=== PATIENT | male | born 1955 | race Caucasian/White ===

== ENCOUNTER → 2016-09-17 | Outpatient (CLI) | payer MEDICARE, OTHER ==
[~2016-09-17] MED LIST: AMITRIPTYLINE H25 M1 PO; ASPIRIN E.C. 8181 MG PO; AZELEX 20% CREA30 GM; BACTRIM DS 8001 TAB PO; COLACE 100100 MG/CAP PO; COREG 3.123.125 MG/T PO; COREG 6.256.25 MG/TA PO; DEMADEX 20MG20 M1 PO; DOXYCYCLINE 10100 MG PO; FLOMAX 0.40.4 MG/CAP PO; K-TAB20 PO; KLOR-CON M2020 MEQ PO; LASIX 20MG TABL20 MG PO; LEVAQUIN 5500 MG/TA1 PO; LIPITOR 40MG TA40 MG PO; LYRICA 25MG CAP25 MG PO; MIRALAX PA17 GM/Dose PO; MS CONTIN 660 MG/TAB PO; PHOSPHA 250 NEU1 TAB PO; PRILOSEC 20MG20 MG PO; PRINIVIL10 MG PO; PROAIR HFA0.09 MG/AC IH; PROTONIX 40MG T40 MG PO; SOOLANTRA TOP; SULFACETAMIDE 115 M1; TYLENOL W/COD1 UDTAB PO; ULTRAM 50MG TAB50 MG PO; VALIUM 5MG T5 MG/TAB PO; VIAGRA100 M1 PO; ZESTRIL2.5 MG PO; ZESTRIL40 MG PO; ZOCOR 80MG80 MG PO
[2016-09-17 11:24] LABS: BASO % 0.6 % (0.0-2.0); EOS # 0.2 (0.0-0.7); EOS % 3.3 % (0-4.0); GRAN # 3.2 (1.4-6.5); HEMOGLOBIN 13.2 g/dl (13.5-18.0); LYMPH # 1.1 (1.2-3.4); LYMPH % 21.3 % (20.0-51.0); MEAN CELL VOLUME 94 fl (80.0-100.0); MEAN CORPUSCULAR HEMOGLOBIN 31 pg (27.0-31.0); MEAN CORPUSCULAR HGB CONC 33 g/dl (33.0-37.0); MEAN PLATELET VOLUME 10.6 fl (7.4-10.4); MONO # 0.7 (0.1-0.6); MONO % 13.2 % (1.7-9.3); PLATELET COUNT 246 K/mm3 (130-400); RED BLOOD COUNT 4.27 M/mm3 (4.20-5.60); REDCELL DISTRIBUTION WIDTH-CV 12.4 % (11.5-14.5); WHITE BLOOD COUNT 5.2 K/mm3 (4.8-10.8)
[2016-09-17 11:31] LABS: CALCIUM 9.5 mg/dL (8.4-10.2); CREATININE, serum 1.19 mg/dL (0.66-1.25); POTASSIUM 4.8 mmol/L (3.4-5.0)
[2016-09-17 23:09] LABS: CREATININE OTHER SOURCE 121 mg/dL (())
== END ==
LOC: COL.LAB 09-16 10:39
PROVIDERS: Internal Medicine
DX: N18.2 Chronic kidney disease, stage 2 (mild) (principal); E87.1 Hypo-osmolality and hyponatremia

== ENCOUNTER 2017-02-01 10:23 | Inpatient (IN) | payer MEDICARE, OTHER ==
[2017-02-01] VITALS (438 sets, daily range): BP systolic 89–190; BP diastolic 55–95; PULSE 54–94; TEMP 98.4–100; O2SAT 94–100
[~2017-02-01] VITALS: Ht 160 cm; Wt 77.0 kg
[~2017-02-01 10:23] MED LIST changes: -ASPIRIN E.C. 8181 MG PO; -BACTRIM DS 8001 TAB PO; -K-TAB20 PO; -LASIX 20MG TABL20 MG PO; -PHOSPHA 250 NEU1 TAB PO; -SOOLANTRA TOP; -ZESTRIL2.5 MG PO
[2017-02-01] MEDS ORDERED: COREG 6.256.25 MG/TA PO (10:43)
[2017-02-01] MEDS ORDERED: VALIUM 5MG T5 MG/TAB PO (10:44)
[2017-02-01] MEDS ORDERED: ASPIRIN E.C. 8181 MG PO (10:46)
[2017-02-01] MEDS ORDERED: LASIX 20MG TABL20 MG PO (10:46)
[2017-02-01] MEDS ORDERED: TYLENOL W/COD1 UDTAB PO (10:47)
[2017-02-01 10:48] LABS: HEMOGLOBIN 13.7 g/dl (13.5-18.0); MEAN CELL VOLUME 96 fl (80.0-100.0); MEAN CORPUSCULAR HEMOGLOBIN 31 pg (27.0-31.0); MEAN CORPUSCULAR HGB CONC 33 g/dl (33.0-37.0); MEAN PLATELET VOLUME 10.9 fl (7.4-10.4); PLATELET COUNT 251 K/mm3 (130-400); RED BLOOD COUNT 4.38 M/mm3 (4.20-5.60); REDCELL DISTRIBUTION WIDTH-CV 13.1 % (11.5-14.5); WHITE BLOOD COUNT 15.7 K/mm3 (4.8-10.8)
[2017-02-01] MEDS ORDERED: PRINIVIL10 MG PO (10:48)
[2017-02-01] MEDS ORDERED: SOOLANTRA TOP (10:48)
[2017-02-01 10:52] LABS: ADD PATHOLOGY DIFF REVIEW NO
[2017-02-01 11:02] LABS: ADJUSTED CALCIUM 8.7 mg/dL (8.4-10.2); BILIRUBIN,TOTAL 1.2 mg/dL (0.0-1.0); CALCIUM 8.7 mg/dL (8.4-10.2); CREATININE, serum 3.21 mg/dL (0.66-1.25); POTASSIUM 3.9 mmol/L (3.4-5.0)
[2017-02-01 11:05] LABS: ARTERIAL BLD GAS TCO2 CT 23.2; ARTERIAL BLOOD GAS BASE EXCESS -5.2 (-2-2); ARTERIAL BLOOD GAS HCO3 21.7 meq/L (22-26); ARTERIAL BLOOD GAS PHT 7.25 C (7.35-7.45); ARTERIAL BLOOD GAS PO2T 70.7 (80-100); ARTERIAL BLOOD GAS pH 7.27 (7.35-7.45); OXYHEMOGLOBIN 88.8 %
[2017-02-01 11:06] LABS: ALLEN TEST NO; ATS? YES
[2017-02-01 11:58] LABS: BAND 50 % (0-10); BASOPHIL 1 % (0-2); NEUTROPHILS 28 % (42.0-75.2); TOTAL CELLS COUNTED 100
[2017-02-01 12:00] LABS: PLATELET ESTIMATE NORMAL (NORMAL); TOXIC GRANULATION PRESENT
[2017-02-01 12:01] LABS: METAMYELOCYTE 3 % (0-0)
[2017-02-01 13:04] LABS: PH 5 (5-8); SQUAMOUS EPITHELIAL None Seen /hpf; URINE APPEARANCE Clear; URINE BACTERIA None Seen /hpf; URINE BILIRUBIN Negative (NEGATIVE); URINE BLOOD Negative (NEGATIVE); URINE COLOR Yellow; URINE GLUCOSE Negative (NEGATIVE); URINE KETONE Negative (NEGATIVE); URINE RBC 0-2 /hpf; URINE UROBILINOGEN Negative (NEGATIVE); URINE WBC 0-2 /hpf
[2017-02-01 14:04] LABS: ARTERIAL BLD GAS O2 SATURATION 90.9 % (92-100); ARTERIAL BLD GAS TCO2 CT 22.2; ARTERIAL BLOOD GAS BASE EXCESS -6.5 (-2-2); ARTERIAL BLOOD GAS HCO3 20.7 meq/L (22-26); ARTERIAL BLOOD GAS PO2 65.9 mmHg (80-100); ARTERIAL BLOOD GAS pH 7.25 (7.35-7.45); OXYHEMOGLOBIN 90.2 %
[2017-02-01 14:05] LABS: ABG VENTILATOR TIDAL VOLUME 503 mL; ALLEN TEST YES; ALLENS TEST RESULT PASS; ATS? YES
[2017-02-01 14:18] LABS: VENOUS BLOOD GAS BE -5.8 (-4-4); VENOUS BLOOD GAS SAO2 64.8 % (60-80)
[2017-02-01 14:19] LABS: VENOUS BLOOD GAS SITE CENTRAL LINE
[2017-02-01 16:07] LABS: ARTERIAL BLD GAS O2 SATURATION 98.2 % (92-100); ARTERIAL BLD GAS TCO2 CT 21.7; ARTERIAL BLOOD GAS BASE EXCESS -6.4 (-2-2); ARTERIAL BLOOD GAS HCO3 20.3 meq/L (22-26); ARTERIAL BLOOD GAS pH 7.27 (7.35-7.45); OXYHEMOGLOBIN 97.2 %
[2017-02-01 16:08] LABS: ABG VENTILATOR TIDAL VOLUME 450 mL; ATS? NO
[2017-02-01 19:46] LABS: ARTERIAL BLD GAS O2 SATURATION 79.3 % (92-100); ARTERIAL BLD GAS TCO2 CT 14.9; ARTERIAL BLOOD GAS BASE EXCESS -10.3 (-2-2); ARTERIAL BLOOD GAS HCO3 14.1 meq/L (22-26); ARTERIAL BLOOD GAS PO2 39.8 mmHg (80-100); ARTERIAL BLOOD GAS pH 7.35 (7.35-7.45); OXYHEMOGLOBIN 78.4 %
[2017-02-01 19:47] LABS: ATS? NO
[2017-02-01 20:02] LABS: ARTERIAL BLD GAS O2 SATURATION 95.9 % (92-100); ARTERIAL BLD GAS TCO2 CT 18.5; ARTERIAL BLOOD GAS BASE EXCESS -6.2 (-2-2); ARTERIAL BLOOD GAS HCO3 17.6 meq/L (22-26); ARTERIAL BLOOD GAS PO2 81.6 mmHg (80-100); ARTERIAL BLOOD GAS pH 7.39 (7.35-7.45); OXYHEMOGLOBIN 95.1 %
[2017-02-01 20:03] LABS: ATS? NO
[2017-02-02] VITALS (1184 sets, daily range): BP systolic 95–142; BP diastolic 52–85; PULSE 48–60; TEMP 96.7–98.4; O2SAT 67–100
[2017-02-02 00:24] LABS: VENOUS BLOOD GAS BE -7.9 (-4-4); VENOUS BLOOD GAS SAO2 72.9 % (60-80)
[2017-02-02 00:25] LABS: VENOUS BLOOD GAS SITE CENTRAL LINE
[2017-02-02 04:00] LABS: VENOUS BLOOD GAS BE -4.1 (-4-4); VENOUS BLOOD GAS SAO2 73.3 % (60-80); VENOUS BLOOD GAS SITE CENTRAL LINE
[2017-02-02 05:18] LABS: HEMATOCRIT 30.1 % (42.0-52.0); HEMOGLOBIN 10.2 g/dl (13.5-18.0); MEAN CELL VOLUME 94 fl (80.0-100.0); MEAN CORPUSCULAR HEMOGLOBIN 32 pg (27.0-31.0); MEAN CORPUSCULAR HGB CONC 34 g/dl (33.0-37.0); MEAN PLATELET VOLUME 12.1 fl (7.4-10.4); PLATELET COUNT 158 K/mm3 (130-400); RED BLOOD COUNT 3.22 M/mm3 (4.20-5.60); REDCELL DISTRIBUTION WIDTH-CV 13.2 % (11.5-14.5); WHITE BLOOD COUNT 14.8 K/mm3 (4.8-10.8)
[2017-02-02 05:18] LABS: ARTERIAL BLD GAS O2 SATURATION 96.8 % (92-100); ARTERIAL BLD GAS TCO2 CT 18.8; ARTERIAL BLOOD GAS BASE EXCESS -5.8 (-2-2); ARTERIAL BLOOD GAS HCO3 17.9 meq/L (22-26); ARTERIAL BLOOD GAS PO2 96.1 mmHg (80-100); ATS? NO
[2017-02-02 05:43] LABS: INR 1.3 (0.8-3.0); PROTHROMBIN TIME 14.9 SECONDS (9.7-12.8)
[2017-02-02 05:46] LABS: ADD PATHOLOGY DIFF REVIEW NO
[2017-02-02 05:52] LABS: BAND 69 % (0-10); METAMYELOCYTE 1 % (0-0); NEUTROPHILS 21 % (42.0-75.2); PLATELET ESTIMATE NORMAL (NORMAL); TOTAL CELLS COUNTED 100
[2017-02-02 05:56] LABS: ADJUSTED CALCIUM 8.3 mg/dL (8.4-10.2); ALBUMIN 2.6 gm/dL (3.5-5.0); BILIRUBIN,TOTAL 0.5 mg/dL (0.0-1.0); CALCIUM 7.2 mg/dL (8.4-10.2); CREATININE, serum 1.32 mg/dL (0.66-1.25); MAGNESIUM 1.8 mg/dL (1.6-2.3); PHOSPHOROUS 1.9 mg/dL (2.5-4.5); POTASSIUM 3.7 mmol/L (3.4-5.0)
[2017-02-02 09:41] LABS: VENOUS BLOOD GAS SITE CENTRAL LINE
[2017-02-03] VITALS (1421 sets, daily range): BP systolic 103–132; BP diastolic 57–70; PULSE 56–76; TEMP 97.7–98.8; O2SAT 63–100
[2017-02-03 05:07] LABS: ARTERIAL BLD GAS O2 SATURATION 97.3 % (92-100); ARTERIAL BLD GAS TCO2 CT 18.9; ARTERIAL BLOOD GAS BASE EXCESS -6.2 (-2-2); ARTERIAL BLOOD GAS PO2 113.2 mmHg (80-100); ARTERIAL BLOOD GAS pH 7.38 (7.35-7.45); OXYHEMOGLOBIN 96.2 %
[2017-02-03 05:08] LABS: ATS? NO
[2017-02-03 05:35] LABS: BASO % 0.1 % (0.0-2.0); EOS # 0.1 (0.0-0.7); EOS % 0.5 % (0-4.0); GRAN # 13.1 (1.4-6.5); GRAN % 88.9 % (42.2-75.2); LYMPH # 0.6 (1.2-3.4); LYMPH % 4.3 % (20.0-51.0); MEAN CELL VOLUME 92 fl (80.0-100.0); MEAN CORPUSCULAR HGB CONC 35 g/dl (33.0-37.0); MONO # 0.6 (0.1-0.6); PLATELET COUNT 159 K/mm3 (130-400); RED BLOOD COUNT 3.17 M/mm3 (4.20-5.60); REDCELL DISTRIBUTION WIDTH-CV 13.7 % (11.5-14.5); WHITE BLOOD COUNT 14.8 K/mm3 (4.8-10.8)
[2017-02-03 05:37] LABS: HEMATOCRIT 29.3 % (42.0-52.0); HEMOGLOBIN 10.1 g/dl (13.5-18.0); MEAN CORPUSCULAR HEMOGLOBIN 32 pg (27.0-31.0)
[2017-02-03 05:41] LABS: INR 1.1 (0.8-3.0); PROTHROMBIN TIME 12.2 SECONDS (9.7-12.8)
[2017-02-03 05:46] LABS: ADJUSTED CALCIUM 8.7 mg/dL (8.4-10.2); ALBUMIN 2.5 gm/dL (3.5-5.0); BILIRUBIN,TOTAL 0.5 mg/dL (0.0-1.0); CALCIUM 7.5 mg/dL (8.4-10.2); CREATININE, serum 0.93 mg/dL (0.66-1.25); PHOSPHOROUS 2.1 mg/dL (2.5-4.5); POTASSIUM 3.4 mmol/L (3.4-5.0); TOTAL PROTEIN 5.2 gm/dL (6.4-8.2)
[2017-02-03 14:20] LABS: ARTERIAL BLD GAS TCO2 CT 20.6; ARTERIAL BLOOD GAS BASE EXCESS -6.1 (-2-2); ARTERIAL BLOOD GAS HCO3 19.4 meq/L (22-26); ARTERIAL BLOOD GAS PHT 7.32 C (7.35-7.45); ARTERIAL BLOOD GAS PO2 90.9 mmHg (80-100); ARTERIAL BLOOD GAS PO2T 90.9 (80-100); ARTERIAL BLOOD GAS pH 7.32 (7.35-7.45)
[2017-02-03 14:21] LABS: ABG VENTILATOR TIDAL VOLUME 450 mL; ATS? YES
[2017-02-03 22:47] LABS: ARTERIAL BLD GAS TCO2 CT 21.8; ARTERIAL BLOOD GAS BASE EXCESS -3.6 (-2-2); ARTERIAL BLOOD GAS HCO3 20.7 meq/L (22-26); ARTERIAL BLOOD GAS PO2 97.1 mmHg (80-100); ARTERIAL BLOOD GAS pH 7.39 (7.35-7.45); OXYHEMOGLOBIN 96.1 %
[2017-02-03 22:48] LABS: ABG VENTILATOR TIDAL VOLUME 656 mL; ALLEN TEST YES; ALLENS TEST RESULT PASS; ATS? YES
[2017-02-04] VITALS (845 sets, daily range): BP systolic 123–159; BP diastolic 75–81; PULSE 84–92; TEMP 97.8–99; O2SAT 87–100
[2017-02-04 04:45] LABS: MEAN CELL VOLUME 91 fl (80.0-100.0); MEAN CORPUSCULAR HGB CONC 34 g/dl (33.0-37.0); MEAN PLATELET VOLUME 11.1 fl (7.4-10.4); PLATELET COUNT 178 K/mm3 (130-400); RED BLOOD COUNT 3.35 M/mm3 (4.20-5.60); REDCELL DISTRIBUTION WIDTH-CV 14.3 % (11.5-14.5); WHITE BLOOD COUNT 14.3 K/mm3 (4.8-10.8)
[2017-02-04 04:50] LABS: ADD PATHOLOGY DIFF REVIEW NO; HEMATOCRIT 30.6 % (42.0-52.0); HEMOGLOBIN 10.4 g/dl (13.5-18.0); MEAN CORPUSCULAR HEMOGLOBIN 31 pg (27.0-31.0)
[2017-02-04 04:55] LABS: ADJUSTED CALCIUM 8.8 mg/dL (8.4-10.2); ALBUMIN 2.6 gm/dL (3.5-5.0); BILIRUBIN,TOTAL 0.6 mg/dL (0.0-1.0); CALCIUM 7.7 mg/dL (8.4-10.2); CREATININE, serum 0.95 mg/dL (0.66-1.25); MAGNESIUM 1.8 mg/dL (1.6-2.3); PHOSPHOROUS 1.3 mg/dL (2.5-4.5); POTASSIUM 3.1 mmol/L (3.4-5.0); TOTAL PROTEIN 5.3 gm/dL (6.4-8.2)
[2017-02-04 05:15] LABS: ARTERIAL BLD GAS O2 SATURATION 91.5 % (92-100); ARTERIAL BLD GAS TCO2 CT 23.2; ARTERIAL BLOOD GAS BASE EXCESS -1.1 (-2-2); ARTERIAL BLOOD GAS HCO3 22.2 meq/L (22-26); ARTERIAL BLOOD GAS PO2 56.6 mmHg (80-100); ARTERIAL BLOOD GAS pH 7.45 (7.35-7.45); OXYHEMOGLOBIN 90.8 %
[2017-02-04 05:16] LABS: ALLEN TEST YES; ALLENS TEST RESULT PASS; ATS? YES
[2017-02-04 05:29] LABS: BAND 57 % (0-10); EOSINOPHIL 1 % (0-4); NEUTROPHILS 32 % (42.0-75.2); TOTAL CELLS COUNTED 100
[2017-02-04 16:12] LABS: INR 1.2 (0.8-3.0); PROTHROMBIN TIME 12.9 SECONDS (9.7-12.8)
[2017-02-04 16:29] LABS: CALCIUM 8.2 mg/dL (8.4-10.2); CREATININE, serum 1.07 mg/dL (0.66-1.25)
[2017-02-04 16:33] LABS: POTASSIUM 2.9 mmol/L (3.4-5.0)
[2017-02-05] VITALS (7 sets, daily range): BP systolic 135–161; BP diastolic 75–83; PULSE 74–109; TEMP 98.2–99.2
[2017-02-05 07:55] LABS: PHOSPHOROUS 2.4 mg/dL (2.5-4.5)
[2017-02-06 03:42] VITALS: BP 143/76; PULSE 80; TEMP 99.5
[2017-02-06 07:56] LABS: MEAN CELL VOLUME 91 fl (80.0-100.0); MEAN CORPUSCULAR HGB CONC 34 g/dl (33.0-37.0); MEAN PLATELET VOLUME 11.4 fl (7.4-10.4); PLATELET COUNT 171 K/mm3 (130-400); RED BLOOD COUNT 3.18 M/mm3 (4.20-5.60); REDCELL DISTRIBUTION WIDTH-CV 14.3 % (11.5-14.5); WHITE BLOOD COUNT 10.3 K/mm3 (4.8-10.8)
[2017-02-06 08:00] LABS: ADD PATHOLOGY DIFF REVIEW NO; HEMATOCRIT 28.8 % (42.0-52.0); HEMOGLOBIN 9.9 g/dl (13.5-18.0); MEAN CORPUSCULAR HEMOGLOBIN 31 pg (27.0-31.0)
[2017-02-06 08:29] LABS: PHOSPHOROUS 3.7 mg/dL (2.5-4.5); POTASSIUM 3.7 mmol/L (3.4-5.0)
[2017-02-06 08:33] VITALS: BP 135/84; PULSE 94; TEMP 98.2
[2017-02-06 08:35] LABS: VANCOMYCIN TROUGH 5.11 ug/mL (7.00-20.00)
[2017-02-06 11:01] VITALS: BP 118/74; PULSE 89; TEMP 97.8
[2017-02-06 13:33] LABS: BAND 17 % (0-10); EOSINOPHIL 2 % (0-4); METAMYELOCYTE 5 % (0-0); MYELOCYTE 2 % (0-0); NEUTROPHILS 38 % (42.0-75.2); TOTAL CELLS COUNTED 100
[2017-02-06 13:34] LABS: PLATELET ESTIMATE NORMAL (NORMAL)
[2017-02-06 13:35] LABS: HYPOCHROMIA 1+
[2017-02-06 15:58] VITALS: BP 108/70; PULSE 100; TEMP 98.2
[2017-02-06 20:35] VITALS: BP 147/83; PULSE 82; TEMP 98
[2017-02-06 23:38] VITALS: BP 140/77; PULSE 82; TEMP 97.9
[2017-02-07 03:56] VITALS: BP 138/71; PULSE 76; TEMP 98.2
[2017-02-07 07:07] VITALS: BP 141/74; PULSE 77; TEMP 97.9
[2017-02-07 07:55] LABS: MEAN CELL VOLUME 92 fl (80.0-100.0); MEAN CORPUSCULAR HGB CONC 34 g/dl (33.0-37.0); MEAN PLATELET VOLUME 11.3 fl (7.4-10.4); PLATELET COUNT 196 K/mm3 (130-400); RED BLOOD COUNT 3.34 M/mm3 (4.20-5.60); REDCELL DISTRIBUTION WIDTH-CV 14.5 % (11.5-14.5); WHITE BLOOD COUNT 9.3 K/mm3 (4.8-10.8)
[2017-02-07 08:01] LABS: HEMATOCRIT 30.6 % (42.0-52.0); HEMOGLOBIN 10.4 g/dl (13.5-18.0); MEAN CORPUSCULAR HEMOGLOBIN 31 pg (27.0-31.0)
[2017-02-07 08:11] LABS: POTASSIUM 3.4 mmol/L (3.4-5.0)
[2017-02-07 10:48] LABS: ADD PATHOLOGY DIFF REVIEW YES; BAND 27 % (0-10); EOSINOPHIL 8 % (0-4); METAMYELOCYTE 1 % (0-0); MYELOCYTE 2 % (0-0); NEUTROPHILS 19 % (42.0-75.2); PLATELET ESTIMATE NORMAL (NORMAL); TOTAL CELLS COUNTED 100
[2017-02-07 11:48] VITALS: BP 147/79; PULSE 80; TEMP 98.3
[2017-02-07] MEDS ORDERED: PROAIR HFA0.09 MG/AC IH (12:17)
[2017-02-07] MEDS ORDERED: ZESTRIL2.5 MG PO (12:17)
[2017-02-07] MEDS ORDERED: BACTRIM DS 8001 TAB PO (12:17)
[2017-02-07] MEDS ORDERED: PHOSPHA 250 NEU1 TAB PO (12:17)
[2017-02-07] MEDS ORDERED: K-TAB20 PO (12:23)
== END 2017-02-07 15:20 | disposition home or self-care (01) | DRG 853 ==
LOC: COL.ER 10:23 → MEDICAL 11:15 → ICU 11:15 → MEDICAL 02-04 18:05
PROVIDERS: Emergency Medicine; Family Medicine; Internal Medicine Pulmonary Disease
PROC: 5A1945Z Respiratory Ventilation, 24-96 Consecutive Hours (ICD-10-PCS; 2017-02-01)
PROC: 0BH17EZ Insertion of Endotracheal Airway into Trachea, Via Natural or Artificial Opening (ICD-10-PCS; 2017-02-01)
PROC: 02HV33Z Insertion of Infusion Device into Superior Vena Cava, Percutaneous Approach (ICD-10-PCS; 2017-02-01)
PROC: 0B968ZZ Drainage of Right Lower Lobe Bronchus, Via Natural or Artificial Opening Endoscopic (ICD-10-PCS; principal; 2017-02-02)
PROC: 0B9B8ZZ Drainage of Left Lower Lobe Bronchus, Via Natural or Artificial Opening Endoscopic (ICD-10-PCS; 2017-02-02)
PROC: 0B948ZZ Drainage of Right Upper Lobe Bronchus, Via Natural or Artificial Opening Endoscopic (ICD-10-PCS; 2017-02-02)
DX: A41.9 Sepsis, unspecified organism (principal); J18.9 Pneumonia, unspecified organism; R65.21 Severe sepsis with septic shock; J96.01 Acute respiratory failure with hypoxia; N17.0 Acute kidney failure with tubular necrosis; E87.2 Acidosis; I13.0 Hypertensive heart and chronic kidney disease with heart failure and stage 1 through stage 4 chronic kidney disease, or unspecified chronic kidney disease; I42.9 Cardiomyopathy, unspecified; I50.32 Chronic diastolic (congestive) heart failure; E46 Unspecified protein-calorie malnutrition; N18.3 Chronic kidney disease, stage 3 (moderate); K21.9 Gastro-esophageal reflux disease without esophagitis; K20.9 Esophagitis, unspecified; M21.371 Foot drop, right foot; Z98.1 Arthrodesis status; E87.6 Hypokalemia; Z68.31 Body mass index [BMI] 31.0-31.9, adult
CPT/HCPCS: 99223-AI; 99232-AI; 99233-AI; 99239; A4315; C1751; C1894; J0295; J1644; J1720; J1940; J1956; J2250; J2543; J2704; J3010; J3370; J3475; J3480; J7030; J7050; J7060

== ENCOUNTER → 2017-02-26 | Outpatient (CLI) | payer MEDICARE, OTHER ==
[~2017-02-26] MED LIST changes: +ASPIRIN E.C. 8181 MG PO; +BACTRIM DS 8001 TAB PO; +K-TAB20 PO; +LASIX 20MG TABL20 MG PO; +PHOSPHA 250 NEU1 TAB PO; +SOOLANTRA TOP; +ZESTRIL2.5 MG PO
[2017-02-26 14:22] LABS: BASO % 0.5 % (0.0-2.0); EOS # 0.3 (0.0-0.7); EOS % 5.2 % (0-4.0); GRAN # 3.2 (1.4-6.5); GRAN % 56.9 % (42.2-75.2); HEMATOCRIT 40.2 % (42.0-52.0); HEMOGLOBIN 13.2 g/dl (13.5-18.0); LYMPH # 1.6 (1.2-3.4); LYMPH % 28.6 % (20.0-51.0); MEAN CELL VOLUME 94 fl (80.0-100.0); MEAN CORPUSCULAR HEMOGLOBIN 31 pg (27.0-31.0); MEAN CORPUSCULAR HGB CONC 33 g/dl (33.0-37.0); MEAN PLATELET VOLUME 10.5 fl (7.4-10.4); MONO # 0.5 (0.1-0.6); MONO % 8.1 % (1.7-9.3); PLATELET COUNT 316 K/mm3 (130-400); REDCELL DISTRIBUTION WIDTH-CV 13.1 % (11.5-14.5); WHITE BLOOD COUNT 5.6 K/mm3 (4.8-10.8)
[2017-02-26 14:42] LABS: ERYTHROCYTE SEDIMENTATION RATE 9 mm/hr (0-30)
== END ==
LOC: COL.RAD 13:52
PROVIDERS: Internal Medicine Infectious Disease
DX: J18.9 Pneumonia, unspecified organism (principal); M47.814 Spondylosis without myelopathy or radiculopathy, thoracic region

== ENCOUNTER 2018-10-07 07:35 | Day surgery (SDC) | payer MEDICARE, OTHER ==
[~2018-10-07] VITALS: Ht 162.6 cm; Wt 72.3 kg
[2018-10-07 07:52] VITALS: BP 134/89; PULSE 72; TEMP 97.9
[2018-10-07] MEDS ORDERED: ZESTRIL 20MG TA20 MG PO (08:01)
[2018-10-07] MEDS ORDERED: MELATONIN3 M1 PO (08:02)
[2018-10-07] MEDS ORDERED: PRILOSEC 20MG20 MG PO (08:02)
--- NOTE | 2018-10-07 08:04 | NUR ---
TO RM AT 0740- CALL LIGHT IN REACH AT BEDSIDE.
[2018-10-07 09:40] VITALS: BP 111/81; PULSE 78; TEMP 97.2
--- NOTE | 2018-10-07 09:40 | NUR ---
Pt arrived to room bay 3 from procedure via cart. Pt alert and oriented x3. Pt ambulated to chair with steady gait and x1 assist by nurse. Pt denies any N/V and pain. Pt's at bedside. Vital signs stable. Pt request grape juice at this time. Call light in reach.
[2018-10-07 09:55] VITALS: BP 111/80; PULSE 77; TEMP 97.2
--- NOTE | 2018-10-07 09:55 | NUR ---
Pt tolerating grape juice well. Denies any nausea.
[2018-10-07 10:10] VITALS: BP 128/75; PULSE 66; TEMP 97.2
--- NOTE | 2018-10-07 10:10 | NUR ---
Discharge paperwork explained to pt and pt's . All questions answered with pt's satisfaction. Pt given Discharge instructions, med list, and procedure info.
--- NOTE | 2018-10-07 10:18 | NUR ---
pt discharged with , via wheelchair with cassidy, to private vehicle.
[2018-10-07 12:23] VITALS: BP 111/85; PULSE 67
== END 2018-10-07 10:18 | disposition home or self-care (01) ==
LOC: SDCO 07:35
DX: Z12.11 Encounter for screening for malignant neoplasm of colon (principal); K22.70 Barrett's esophagus without dysplasia
CPT/HCPCS: OP; J2250; J2405; J3010